=== PATIENT | male | born 2000 | race Two or more races ===

== ENCOUNTER 2023-11-15 18:17 | Emergency (ER) | payer BC, MEDICAID ==
[~2023-11-15] VITALS: Ht 180.3 cm; Wt 80.0 kg
[2023-11-15] MEDS: MORPHINE SULFATE 4 MG/ML SYR/VIAL IV ONE (19:01)
[2023-11-15] MEDS ORDERED: CEPH500C PO (20:16)
[2023-11-15 20:57] VITALS: PULSE 100; RESP 16; TEMP 98; O2SAT 97
[2023-11-15 21:00] VITALS: BP 115/70; PULSE 100; RESP 16
[2023-11-15] MEDS: LIDOCAINE 1% HCL (LOCAL ANESTH.) INJ 20ML MDV IJ ONE (21:03)
== END 2023-11-15 21:09 | disposition home or self-care (01) ==
LOC: ER 18:17
DX: S41.012A Laceration without foreign body of left shoulder, initial encounter (principal); W51.XXXA Accidental striking against or bumped into by another person, initial encounter; Y93.89 Activity, other specified; Y92.89 Other specified places as the place of occurrence of the external cause; Y99.8 Other external cause status
CPT/HCPCS: 12002; 73030; 96374; 99283; J2270